=== PATIENT | male | born 1955 | race Caucasian/White ===

== ENCOUNTER 2017-01-25 17:29 | Emergency (ER) | payer BC ==
[2017-01-25] MEDS ORDERED: cefTRIAXone VIAL(*) 1,000 MG in NS 0.9% 50 ML* 50 ML IVPB ONE (17:57)
[2017-01-25] MEDS ORDERED: cefTRIAXone VIAL(*) 1,000 MG VIAL ONE (18:05)
--- NOTE | 2017-01-25 18:31 | UC ---
Skin Complaint HPI - HPI Summary HPI Summary: 61 yo male with a 2 day hx of left leg redness and slight pain as well as fever and chills Hx of admission for cellulitis once years ago no n/v/d no HUTSON no myalgias no hx MRSA - History of Current Complaint Chief Complaint: UCSkin Time Seen by Provider: 01/25/17 17:46 Stated Complaint: LFT LEG COMPLAINT Hx Obtained From: Patient Onset/Duration: Gradual Onset, Lasting Days Timing: Constant Onset Severity: Mild Current Severity: Mild Pain Intensity: 2 Location: Discrete Character: Swelling, Pain, Redness Aggravating: Touch, Other - wt bearing Associated Signs & Symptoms: Positive: Fever, Chills, Tenderness - Allergy/Home Medications Allergies/Adverse Reactions: Allergies Allergy/AdvReac Type Severity Reaction Status Date / Time No Known Allergies Allergy Verified 01/25/17 17:37 Home Medications: Home Medications Acetaminophen TAB* [Tylenol TAB*] 650 mg PO Q4H PRN 01/25/17 [History Confirmed 01/25/17] Review of Systems Constitutional: Fever, Chills Skin: Negative Eyes: Negative ENT: Negative Respiratory: Negative Cardiovascular: Negative Gastrointestinal: Negative Genitourinary: Negative Motor: Negative Neurovascular: Negative Musculoskeletal: Negative Neurological: Negative Psychological: Negative All Other Systems Reviewed And Are Negative: Yes PMH/Surg Hx/FS Hx/Imm Hx Previously Healthy: Yes - Surgical History Surgical History: Yes Surgery Procedure, Year, and Place: TONSILLECTOMY. CORECTIVE EYE SURGERY. CELLULITIS - Family History Known Family History: Positive: Cardiac Disease, Hypertension, Diabetes - Social History Alcohol Use: Rare Substance Use Type: None Smoking Status (MU): Former Smoker Type: Cigarettes When Did the Patient Quit Smoking/Using Tobacco: 1994 Physical Exam Triage Information Reviewed: Yes Appearance: Well-Appearing, No Pain Distress, Well-Nourished Vital Signs: Initial Vital Signs Temp 101.1 F 01/25/17 17:31 Pulse 108 01/25/17 17:31 Resp 16 01/25/17 17:31 BP 125/67 01/25/17 17:31 Pulse Ox 96 01/25/17 17:31 Vital Signs Reviewed: Yes Eyes: Positive: Conjunctiva Clear ENT: Positive: Hearing grossly normal. Negative: Nasal congestion, Nasal drainage, Trismus, Muffled/hoarse voice Neck: Positive: Supple, Nontender, No Lymphadenopathy Respiratory: Positive: Lungs clear, Normal breath sounds, No respiratory distress, No accessory muscle use Cardiovascular: Positive: RRR, No Murmur Psychological Exam: Normal Skin Exam: Other - see image Re-Evaluation - Re-Evaluation First Eval Re-Evaluation Time: 18:57 Change: Improved Comment: feels fine and wants to go Course/Dx - Diagnoses Provider Diagnoses: cellulitis left lower extremity Discharge - Discharge Plan Condition: Stable Disposition: HOME Prescriptions: Cephalexin CAP* [Keflex CAP*] 500 mg PO QID #28 cap Patient Education Materials: Cellulitis (ED) Forms: *Work Release Referrals: [facility] [Outside] (you need to find a director of hotel operations) No Primary Care Phys,NOPCP [Primary Care Provider] - Additional Instructions: rest elevate elevate elevate warm /soapy compresses 4x day until better tylenol or advil if needed TO ER FOR worsening symptoms recheck in about 48 hours if not improved or if you are still febrile Images Front/Back of Body, Lg ([place]): 1 - scab 2 - red/swollen
[2017-01-25 18:59] VITALS: BP 145/78
== END 2017-01-25 19:06 | disposition home or self-care (01) ==
LOC: UCCORT 17:29
DX: L03.116 Cellulitis of left lower limb (principal); R50.9 Fever, unspecified; Z87.891 Personal history of nicotine dependence
CPT/HCPCS: 96365; 99213; G0463; J0696

== ENCOUNTER 2017-01-27 11:17 | Emergency (ER) | payer BC ==
[2017-01-27 11:53] VITALS: BP 123/68
[2017-01-27] MEDS ORDERED: Sulfamethox/Trimethoprim DS 800/160* TAB PO ONE (12:14)
--- NOTE | 2017-01-27 12:21 | UC ---
Skin Complaint HPI - HPI Summary HPI Summary: Seen here on 01/25 with fever and left leg cellulitis given IV rocephin and started on keflex feels better no fever decreased swelling pain free ambulations but increased redness - History of Current Complaint Chief Complaint: UCSkin Time Seen by Provider: 01/27/17 11:47 Stated Complaint: LEFT LEG COMPLAINT (SEEN 01/25) Hx Obtained From: Patient Onset/Duration: Lasting Days Timing: Constant Onset Severity: Moderate Current Severity: Mild Pain Intensity: 2 Pain Scale Used: 0-10 Numeric Location: Discrete Character: Swelling, Redness - Allergy/Home Medications Allergies/Adverse Reactions: Allergies Allergy/AdvReac Type Severity Reaction Status Date / Time No Known Allergies Allergy Verified 01/27/17 11:47 Review of Systems Constitutional: Negative Skin: Negative Eyes: Negative ENT: Negative Respiratory: Negative Cardiovascular: Negative Gastrointestinal: Negative Genitourinary: Negative Motor: Negative Neurovascular: Negative Musculoskeletal: Negative Neurological: Negative Psychological: Negative All Other Systems Reviewed And Are Negative: Yes PMH/Surg Hx/FS Hx/Imm Hx Previously Healthy: Yes - Surgical History Surgical History: Yes Surgery Procedure, Year, and Place: TONSILLECTOMY. CORECTIVE EYE SURGERY - Family History Known Family History: Positive: Cardiac Disease, Hypertension, Diabetes - Social History Alcohol Use: Rare Substance Use Type: None Smoking Status (MU): Former Smoker Type: Cigarettes When Did the Patient Quit Smoking/Using Tobacco: 1994 Physical Exam Triage Information Reviewed: Yes Appearance: Well-Appearing, No Pain Distress, Well-Nourished Vital Signs: Initial Vital Signs Temp 97.8 F 01/27/17 11:48 Pulse 76 01/27/17 11:48 Resp 16 01/27/17 11:48 BP 123/68 01/27/17 11:48 Pulse Ox 94 01/27/17 11:48 Vital Signs Reviewed: Yes Eyes: Positive: Conjunctiva Clear ENT: Positive: Hearing grossly normal. Negative: Nasal congestion, Nasal drainage, Trismus, Muffled/hoarse voice Neck: Positive: Supple, Nontender, No Lymphadenopathy Respiratory: Positive: Lungs clear, Normal breath sounds, No respiratory distress, No accessory muscle use Cardiovascular: Positive: RRR, No Murmur Musculoskeletal: Positive: ROM Intact Neurological: Positive: Alert Psychological Exam: Normal Skin: Positive: Other - see image Course/Dx - Diagnoses Provider Diagnoses: recheck of left lower extremity cellulitis Discharge - Discharge Plan Condition: Stable Disposition: HOME Prescriptions: Sulfamethox/Trimethoprim DS* [Bactrim DS 800/160 TAB*] 1 tab PO BID #14 tab Patient Education Materials: Cellulitis (ED) Referrals: No Primary Care Phys,NOPCP [Primary Care Provider] - Additional Instructions: continue keflex we are adding a second antibiotic recheck in 2-3 days if not better recheck sooner for new or worsening symptoms Images Front/Back of Body, Lg ([place]): 1 - erthyema. swelling decrease. no pus/fluctuance
== END 2017-01-27 12:23 | disposition home or self-care (01) ==
LOC: UCCORT 11:17
DX: L03.116 Cellulitis of left lower limb (principal); Z87.891 Personal history of nicotine dependence
CPT/HCPCS: 99212; A9270-GY; G0463

== ENCOUNTER 2018-12-08 11:41 | Emergency (ER) | payer BC ==
[2018-12-08 13:03] VITALS: BP 145/72
--- NOTE | 2018-12-08 13:30 | UC ---
General HPI - HPI Summary HPI Summary: pt is c/o 2 wounds to his L lower leg x 3 weeks that are worsening. he admits to some calf pain as well. his daughter notes that the leg is swollen. pt denies fever, chills, hx DM/HTN/herperlipidemia. he does not have a pcp. pt has had cellulitis twice within past few years, once requiring admission to hospital. pt's daughter has been cleaning the wounds, applying antibiotic ointment and wraps with no improvement. she states the large wound on the back of his leg was 2 smaller ones at the onset. - History of Current Complaint [place] [facility] [place] Complaint: LEFT LEG SWELLING/PAIN Time Seen by Provider: 12/08/18 13:18 Hx Obtained From: Patient, Family/Mosaicist Onset/Duration: Gradual Onset Timing: Constant Pain Intensity: 2 Associated Signs & Symptoms: Negative: Chest Pain, Fever, SOB - Allergy/Home Medications Allergies/Adverse Reactions: Allergies Allergy/AdvReac Type Severity Reaction Status Date / Time No Known Allergies Allergy Verified 12/08/18 13:03 Home Medications: Home Medications Naproxen Sodium [Aleve] 440 mg PO BID 12/08/18 [History Confirmed 12/08/18] PMH/Surg Hx/FS Hx/Imm Hx - Additional Past Medical History Additional PMH: leg cellulitis x2. - Surgical History Surgical History: Yes Surgery Procedure, Year, and Place: TONSILLECTOMY. CORECTIVE EYE SURGERY - Family History Known Family History: Positive: Cardiac Disease, Hypertension, Diabetes - Social History Occupation: Employed Full-time Lives: With Family Alcohol Use: None Substance Use Type: None Smoking Status (MU): Former Smoker Type: Cigarettes When Did the Patient Quit Smoking/Using Tobacco: 1994 Review of Systems All Other Systems Reviewed And Are Negative: Yes Constitutional: Negative: Fever, Chills, Fatigue Skin: Positive: Rash - LLE with wounds Respiratory: Negative: Shortness Of Breath, Cough Cardiovascular: Negative: Palpitations, Chest Pain Musculoskeletal: Positive: Calf Tenderness - LLE, Edema - LLE Physical Exam Triage Information Reviewed: Yes Appearance: Well-Appearing Vital Signs: Initial Vital Signs Temp 98.0 F 12/08/18 12:54 Pulse 77 12/08/18 12:54 Resp 18 12/08/18 12:54 BP 145/72 12/08/18 12:54 Pulse Ox 95 06/23/19 12:54 Vital Signs Reviewed: Yes Eyes: Positive: Conjunctiva Clear Neck: Positive: Supple, Nontender, No Lymphadenopathy Respiratory: Positive: Lungs clear, Normal breath sounds Cardiovascular: Positive: RRR, No Murmur Abdomen Description: Positive: Nontender, No Organomegaly, Soft, Other: - No L inguinal adenopathy Bowel Sounds: Positive: Present Musculoskeletal: Positive: ROM Intact Neurological: Positive: Alert Psychological: Positive: Normal Response To Family, Age Appropriate Behavior Skin Exam: Normal, Other - LLE: pitting edema just below the knee to foot. 1.5 cm dry wound L anterior lower leg. 4-6" weeping wound to back of lower leg. 3/4 of lower leg is red and warm. + L calf tenderness. calf is almost 2x's size of RLE calf. LLE has full s/v/m function. Course/Dx - Course Course Of Treatment: Report given to Dr Roberto. I advised of LLE cellulitis, 2 wounds and need to r/o DVT. Also advised of concern for metabolic syndrome, pt has no pcp. - Differential Dx - Multi-Symptom Differential Diagnoses: Other - cellulitis and non resolving-worsening wounds LLE. will need to r/o DVT. should exclude metabolic syndrom as well especially DM. pt agress to ER transfer. - Diagnoses Provider Diagnosis: Swelling of left lower extremity, Leg wound, left, Cellulitis of left leg Discharge - Sign-Out/Discharge Documenting (check all that apply): Patient Departure All imaging exams completed and their final reports reviewed: No Studies - Discharge Plan Condition: Stable Disposition: TRANS HIGHER LVL OF CARE FAC Referrals: No Primary Care Phys,NOPCP [Primary Care Provider] - Additional Instructions: LEAVE HERE AND GO DIRECTLY TO [facility] DISCUSSED - Billing Disposition and Condition Condition: STABLE Disposition: Trans Higher Lvl of Care Fac - Attestation Statements Provider Attestation: Per institutional requirements, I have reviewed the chart, however, I was not consulted specifically or made aware of this patient by the midlevel provider. I did not personally evaluate, interact with , or disposition this patient.
== END 2018-12-08 13:44 | disposition short-term general hospital (02) ==
LOC: UCCORT 11:41
DX: M79.89 Other specified soft tissue disorders (principal); S81.802A Unspecified open wound, left lower leg, initial encounter; L03.116 Cellulitis of left lower limb; X58.XXXA Exposure to other specified factors, initial encounter; Y92.9 Unspecified place or not applicable; Z87.891 Personal history of nicotine dependence
CPT/HCPCS: 99212; G0463